=== PATIENT | female | born 1985 | race Caucasian/White ===

== ENCOUNTER 2023-08-08 22:45 | Emergency (ER) | payer SELFPAY ==
[2023-08-08 22:54] VITALS: BP 121/82; PULSE 75; RESP 18; TEMP 97.8; BMI 24.7
[2023-08-09 01:47] LABS: BASO % 0.3 % (0-2.0); EOS % 1.3 % (0-4.5); HEMATOCRIT 35.2 % (32.4-45.2); HEMOGLOBIN 11.6 GM/dL (10.7-15.3); LYMPH % 24.9 % (8-40); MCH 28.4 pg (25.7-33.7); MEAN PLT VOLUME 7.2 fl (7.5-11.1); MONO % 9.1 % (3.8-10.2); NEUT % 64.4 % (42.8-82.8); PLATELET COUNT 299 10^3/uL (134-434); RBC 4.09 M/mm3 (3.60-5.2); RDW 15.2 % (11.6-15.6)
[2023-08-09 01:57] LABS: CHLORIDE 105 mmol/L (98-107); INR 0.99 (0.83-1.09); POTASSIUM 3.8 mmol/L (3.5-5.1); PROTHROMBIN TIME (PATIENT) 11.5 SEC (9.7-13.0); SODIUM 139 mmol/L (136-145)
[2023-08-09 01:59] LABS: CALCIUM 9.2 mg/dL (8.5-10.1)
[2023-08-09 02:00] LABS: ALBUMIN 3.8 g/dl (3.4-5.0); ANION GAP 5 mmol/L (4-13); BLOOD UREA NITROGEN 12.4 mg/dL (7-18); CO2 29 mmol/L (21-32); GLUCOSE,RANDOM 88 mg/dL (74-106)
[2023-08-09 02:03] LABS: CREATININE 0.7 mg/dL (0.55-1.3); SGOT/AST 17 U/L (15-37); SGPT/ALT 19 U/L (13-61)
[2023-08-09 02:06] LABS: ALK PHOS 92 U/L (45-117); BILIRUBIN,TOTAL < 0.1 mg/dL (0.2-1)
[2023-08-09 03:00] LABS: EPI CELLS 7 /uL (0-25.1); HYALINE CASTS 0 /uL (0-3.1); PH,URINE 5.5 (5.0-8.0); URINE APPEARANCE CLOUDY; URINE BACTERIA 4 /uL (0-1359); URINE BILIRUBIN NEGATIVE (NEGATIVE); URINE COLOR RED; URINE GLUCOSE (UA) NEGATIVE (NEGATIVE); URINE KETONE NEGATIVE (NEGATIVE); URINE LEUK ESTERASE NEGATIVE (NEGATIVE); URINE NITRITE NEGATIVE (NEGATIVE); URINE PROTEIN 1+ (NEGATIVE); URINE RBC 16556 /uL (0-23.9); URINE UROBILINOGEN 0.2 mg/dL (0.2-1.0); URINE WBC 7 /uL (0-25.8)
== END 2023-08-09 03:12 | disposition home or self-care (01) ==
LOC: JER 22:45
DX: N93.9 Abnormal uterine and vaginal bleeding, unspecified (principal); R42 Dizziness and giddiness
CPT/HCPCS: 36415; 76830-TC; 80053; 81003; 84703; 85025; 85610; 86850; 86900; 86901; 87086; 93005; 93010; 99285-25

== ENCOUNTER 2024-06-09 20:04 | Emergency (ER) | payer OTHER ==
[2024-06-09 20:16] VITALS: BP 124/80; PULSE 93; RESP 18; TEMP 97.4; BMI 24.7
[2024-06-09 21:48] LABS: BASO % 0.5 % (0-2.0); EOS % 1.3 % (0-4.5); HEMATOCRIT 32.4 % (32.4-45.2); HEMOGLOBIN 10.1 GM/dL (10.7-15.3); LYMPH % 36.7 % (8-40); MCHC 31.2 g/dl (32.0-36.0); MEAN CELL VOLUME 73.8 fl (80-96); MEAN PLT VOLUME 6.9 fl (7.5-11.1); MONO % 7.8 % (3.8-10.2); NEUT % 53.7 % (42.8-82.8); PLATELET COUNT 419 10^3/uL (134-434); RBC 4.39 M/mm3 (3.60-5.2); RDW 16.6 % (11.6-15.6); WHITE BLOOD COUNT 5.5 K/mm3 (4.0-10.0)
[2024-06-09 21:59] LABS: INR 0.96 (0.83-1.09); PROTHROMBIN TIME (PATIENT) 11.1 SEC (9.7-13.0)
[2024-06-09 22:01] LABS: ACTIVATED PTT 33.2 SECONDS (25.2-36.5)
[2024-06-09 22:09] LABS: POTASSIUM 4.1 mmol/L (3.5-5.1)
[2024-06-09 22:11] LABS: CALCIUM 9.2 mg/dL (8.5-10.1)
[2024-06-09 22:12] LABS: ALBUMIN 3.8 g/dl (3.4-5.0); BLOOD UREA NITROGEN 12.7 mg/dL (7-18)
[2024-06-09 22:15] LABS: CREATININE 0.8 mg/dL (0.55-1.3)
[2024-06-09 22:16] LABS: BILIRUBIN,TOTAL 0.3 mg/dL (0.2-1); TOT PROT 7.2 g/dl (6.4-8.2)
[2024-06-10] MEDS ORDERED: KETOROLAC TROMETHAMINE 15 MG/ML VIAL ONE (00:13)
[2024-06-10] MEDS: KETOROLAC TROMETHAMINE 30 MG/1 ML VIAL IVPUSH ONE (00:20)
== END 2024-06-10 00:26 | disposition home or self-care (01) ==
LOC: JER 20:04
PROC: 3E0333Z Introduction of Anti-inflammatory into Peripheral Vein, Percutaneous Approach (ICD-10-PCS; principal; 2024-06-09)
DX: T80.818A Extravasation of other vesicant agent, initial encounter (principal); M79.601 Pain in right arm
CPT/HCPCS: 36415; 80053; 83605; 85025; 85610; 85730; 86850; 86900; 86901; 99284-25